=== PATIENT | female | born 1995 ===

== ENCOUNTER 2019-10-23 10:17 | Emergency (ER) | payer SELFPAY ==
[~2019-10-23] VITALS: Ht 165.1 cm; Wt 59.1 kg
[2019-10-23 10:28] VITALS: BP 143/109
--- NOTE | 2019-10-23 11:31 | NUR ---
PT BROUGHT TO ED ACCOMPANIED BY [facility] SOCIAL WORKERS. PT ALSO HAS HER 2 SMALL CHILDREN WITH HER (SON 1YR, DAUGHTER 5YR) MOTHER STATED TO ME THAT SHE HAD NOT HAD CUSTODY OF HER CHILDREN FOR THE PAST MONTH AND SHE JUST GOT THEM BACK FROM THEIR FATHER. SHE VOICED THEY (INDICATING THE SOC WORKERS) SAID I HAD TO COME TO GET CHECKED OUT AND A DRUG TEST OR THEY WERE GOING TO TAKE MY CHILDREN FROM ME. PT'S VOICE IS LOUD AND SHE IS USING FREQUENT PROFANITY. STATING "THIS IS FUCKED UP" "THESE BITCHES ARE LYING TO ME" "THEY KEEP CHANGING THE FUCKING STORY" PT INITIALLY VERBALIZED AGREEMENT FOR TREATMENT AND DOA BUT LATER RECANTED AND STATED "THEY CAN GET A FUCKING COURT ORDER IF THEY WANT A DRUG TEST" IN ADDITION PT ASKED IF THE CHILDREN'S AUNT COULD BE PRESENT, WHICH I SAID YES AND THE AUNT WAS BROUGHT TO THE ROOM WELL. A LOT OF OVER TALKING WAS GOING ON BETWEEN THE AUNT, THE PATIENT AND THE SOCIAL WORKERS. IT WAS VERY DIFFICULT TO TRIAGE THE PATIENT WELL THE CHILDREN. MARIO ALBERTO PARKER AT BEDSIDE TO ASSESS PT AND CHILDREN. MORE OVER TALKING AND THE MOTHER USING INCRESED PROFANITY. I REQUESTED SM SOC WORKER, BRITT TO COME TO BEDSIDE. BRITT ARRIVED AND WAS SUCCESSFUL IN HELPING TO DE-ESCALATE EVERYONE, SHE REMOVED THE SOCIAL WORKERS FROM THE ROOM AND EXPLAINED TO THE PATIENT THAT SHE WOULD BE RETURNING TO REVIEW THE PLAN WITH HER. PATIENT WAS AGREEABLE AND CALMED ONCE THE SOCIAL WORKERS WERE OUT OF THE ROOM.
--- NOTE | 2019-10-23 12:43 | NUR ---
DURING ENTIRE VISIT, MOTHER HAS BEEN SPEAKING IN LOUD VOICE, USING PROFANITY AND CONTINUES TO SCREAM DESPITE HOLDING CHILDREN. OLDER CHILD EVENTUALLY REMOVED FROM ROOM, SITTING IN HALLWAY WITH "AUNTIE." "AUNTIE" BRITT GIMENEZ, [facility] SOC TANISHA, [facility] SWX2, SECURITY X3-4, RPS[place]ata QUITA X2, CHARGE NURSE AND PRIMARY NURSE PRESENT FOR INTERACTIONS. ALL STAFF AWARE OF LARGE KNIFE AND MARIJUANA IN PT'S BAG. INITIALLY, PER PLSS, PT WAS TO HAVE A MENTAL HEALTH EVAL AND UTOX COMPLETED. PER [facility] PROVIDER, NO MEDICAL NECESSITY FOR UTOX AT THIS TIME. IF IT TO BE PERFORMED, [facility] WILL NEED COURT ORDER. ALL SW AWARE. PT AWARE. PT UNRULY AND OVER TALKING AND YELLING AT ALL STAFF DURING ALL CONVERSATIONS. "AUNANTHONY" PERNELL ACTING SIMILARLY, VERY DIFFICULT FOR STAFF TO EDUCATE PT AND FAMINLY ON NEEDS. AFTER AGRESSIONG SHOWED BY PT, PLSS DECIDED THAT IT WOULD BE BEST FOR CHILDREN IN THE CHILDREN WERE PLACED WITH FAMILY. PLAN TO SEND CHILDREN TO PATERNAL AUNT'S (TATIANA) HOME WITH PERNELL. AFTER PT AND PERNELL WERE NOTIFIED, BOTH PT AND PERNELL CONINUED VERBAL AGRESSION AND YELLING. AT THAT TIME, [facility] DECIDED THAT [facility] SHOULD TAKE CHILDREN TO TATIANA'S HOME. PERNELL INITIALLY REFUSING TO LET USE CAR SEATS. [facility] OFFERED CAR SEAT IF NEEDED. WHEN PT WAS TOLD THE CHILDREN WERE TO BE REMOVED FROM HER CARE, [employer] WAS CALLED. [employer] X2 PRESENT TO ASSIST WITH SAFE REMOVAL OF CHILDREN. WITH [employer] ASSISTANCE, CAR SEATS WILL BE REMOVED FROM PERNELL'S CAR AND PLACED IN CAR FOR SAFE TRANSPORT OF CHILDREN. PT CONTINUED TO BE VERBALLY AND PHYSICALLY AGRESSIVE WITH STAFF AND MADE THREATS TO ALL STAFF INCLUDING QUITA, "YOU'RE FIRED! JUST YOU WAIT! I GOT YOU!" BEFORE STORIMG OUT OF ED ESCORED BY SECURITY AND [employer]. DC PAPERWORK FOR CHILDREN PROVIDED TO AND SIGNED BY [facility] TANISHA. PT REFUSED DC PAPERWORK.
== END 2019-10-23 13:09 | disposition home or self-care (01) ==
LOC: ED 12:00
DX: F32.1 Major depressive disorder, single episode, moderate (principal); F43.12 Post-traumatic stress disorder, chronic
CPT/HCPCS: 99283